=== PATIENT | male | born 1995 | race Two or more races ===

== ENCOUNTER 2016-10-12 14:10 | Emergency (ER) | payer OTHER ==
[2016-10-12] MEDS ORDERED: HYDROmorphone 1 MG/ML SYRINGE ONE (14:15)
[2016-10-12] MEDS: HYDROmorphone 1 MG/ML SYRINGE IM STA (14:22)
--- NOTE | 2016-10-12 14:50 | ED Physician Documentation ---
PD HPI UPPER EXT INJURY - Stated complaint Stated Complaint: RIGHT SHOULDER PAIN - Chief complaint Chief Complaint: General - History obtained from History obtained from: Patient - History of Present Illness Location: Right, Shoulder Timing - onset: How many hours ago (1) Timing - duration: Hours (1) Timing - details: Abrupt onset Pain level max: 8 Pain level now: 8 Improved by: Rest, Ice, Immobilization Worsened by: Moving, Palpating Associated symptoms: Swelling. No: Weakness, Numbness, Tingling Contributing factors: No: Prior ortho surgery Similar symptoms before: Has not had sx before Recently seen: Not recently seen - Additonal information Additional information: Patient is a 21-year-old male who complains of right shoulder pain. He states that he suffered a shoulder sprain approximately 1 week ago and was told to rest the shoulder, today while lifting weights he felt the shoulder pop out of joint. Placed into a sling by EMS. Review of Systems Constitutional: denies: Fever GI: denies: Vomiting Skin: denies: Rash Musculoskeletal: denies: Neck pain, Back pain Neurologic: denies: Focal weakness, Numbness, Headache PD PAST MEDICAL HISTORY - Past Medical History Past Medical History: No - Past Surgical History Past Surgical History: No - Present Medications Home Medications: Ambulatory Orders Medication Instructions Recorded Confirmed Ibuprofen [Motrin] 800 mg PO Q8H PRN #30 tablet 10/12/16 - Allergies Allergies/Adverse Reactions: Allergies Allergy/AdvReac Type Severity Reaction Status Date / Time No Known Drug Allergies Allergy Verified 10/12/16 14:18 - Social History Does the pt smoke?: No Smoking Status: Never smoker Does the pt drink ETOH?: Yes Does the pt have substance abuse?: No - Immunizations Immunizations are current?: Yes PD ED PE NORMAL - Vitals Vital signs reviewed: Yes - General General: Alert and oriented X 3, No acute distress - HEENT HEENT: Moist mucous membranes - Neck Neck: Supple, no meningeal sign - Cardiac Cardiac: RRR, Strong equal pulses - Respiratory Respiratory: No respiratory distress, Clear bilaterally - Derm Derm: Warm and dry - Extremities Extremities: Other (R shoulder - deformity at the glenohumeral joint. empty fossa. humeral head felt anteriorly and inferiorly. NVI including axillary nerve.) - Neuro Neuro: Alert and oriented X 3 - Psych Psych: Normal mood, Normal affect Results - Vitals Vitals: Vital Signs - 24 hr 05/05/17 05/05/17 14:13 14:53 Temperature 36.8 C Heart Rate 58 L 76 Respiratory 14 18 Rate Blood Pressure 140/68 H 208/56 H O2 Saturation 98 100 Oxygen O2 Source Room air - Rads (name of study) R shoulder Radiology: Prelim report reviewed, EMP read contemporaneously, See rad report ( Normal shoulder radiography. ) Procedures - Reduction Body part reduced: Right, Shoulder Fracture or dislocation: Dislocation Anesthesia: Dilaudid (1mg IM) Shoulder reduction technique: Other (FARES technique) Reduction aftercare: NV intact, Xray confirms reduction, Alignment improved, Sling PD MEDICAL DECISION MAKING - ED course Complexity details: reviewed results, re-evaluated patient, considered differential, d/w patient ED course: Patient is a 21-year-old male who presents to the emergency department with a clear right shoulder dislocation. This was reduced in the emergency department. Patient tolerated very well. X-ray confirms reduction. No acute findings on x-ray. Will place in sling for comfort [place] Patient counseled regarding signs and symptoms for which I believe and urgent re-evaluation would be necessary. Patient with good understanding of and agreement to plan and is comfortable going home at this time This document was made in part using voice recognition software. While efforts are made to proofread this document, sound alike and grammatical errors may occur. Departure - Departure Disposition: 01 Home, Self Care Clinical Impression: Shoulder dislocation Qualifiers: Encounter type: initial encounter Laterality: right Qualified Code(s): S43.004A - Unspecified dislocation of right shoulder joint, initial encounter Condition: Good Instructions: ED Dislocation Shoulder Redu Follow-Up: your,doctor in 1 week [Other] Prescriptions: Ibuprofen [Motrin] 800 mg PO Q8H PRN #30 tablet PRN Reason: PAIN &/OR FEVER Comments: Return if you worsen. Wear the sling until released by orthopedics. Your blood pressure was elevated today on check in to the emergency department. This does not mean that you have hypertension, it is a common phenomenon to check into the emergency department and have elevated blood pressure. I recommend that you see your primary care physician within the week to have it rechecked when you're feeling better. Forms: Activity restrictions Discharge Date/Time: 10/12/16 14:54
[2016-10-12 14:57] VITALS: BP 208/56
--- NOTE | 2016-10-12 18:33 | XRAY Preliminary Report ---
Exam: XR Shoulder 3 View RT IMPRESSION: Normal shoulder radiography. [facility] SITE ID: [id number]
--- NOTE | 2016-10-12 18:36 | XRAY Report ---
EXAM: RIGHT SHOULDER RADIOGRAPHY EXAM DATE: 10/12/2016 02:53 PM. CLINICAL HISTORY: R shoulder dislocation s/p reduction. COMPARISON: None. TECHNIQUE: 3 views. FINDINGS: Bones: Normal. No fracture or bone lesion. Joints: The glenohumeral and acromioclavicular joints are normal. Soft tissues: The visualized hemithorax is unremarkable. No soft tissue swelling. IMPRESSION: Normal shoulder radiography. [facility] Referring Provider Line: [phone] SITE ID: [id number]
== END 2016-10-12 14:54 | disposition home or self-care (01) ==
LOC: ED 14:10
DX: S43.004A Unspecified dislocation of right shoulder joint, initial encounter (principal); X50.0XXA Overexertion from strenuous movement or load, initial encounter; Y93.B3 Activity, free weights
CPT/HCPCS: 23650; 99283